=== PATIENT | male | born 1970 | race Caucasian/White ===

== ENCOUNTER 2017-06-23 17:37 | Emergency (ER) | payer BC, OTHER ==
[~2017-06-23] VITALS: Ht 182.9 cm; Wt 89.9 kg
[~2017-06-23 17:37] MED LIST: MOME50SP5; UNKNOWN INHALER INH
[2017-06-23 17:40] VITALS: TEMP 36.9; Ht 182.9 cm; Wt 89.9 kg
[2017-06-23] MEDS ORDERED: PROPARACAINE HCL 0.5% OP SOLN 15 ML BTL ONE (17:51)
--- NOTE | 2017-06-23 20:51 | EMERGENCY ROOM VISIT NOTE ---
History First contact with patient: 17:46 Chief Complaint: EYE ASSESSMENT Stated Complaint: PERIPHERAL VISION IMPAIRMENT, LEFT EYE History of Present Illness The patient is a 47 year old male who presents to the Emergency Room via private vehicle with complaints of "Peripheral vision impairment, left eye". The patient states that he recently had a vitreous detachment, and retinal tear repaired via laser this past Sunday by Dr. Hyde. He states that he has been doing well up until 2 hours prior to arrival he notes that the left eye, in the left lateral field of vision is turning dark. He is concerned that he is experiencing a retinal tear. He has a history of such in his right eye. He states that there is no pain. Review of Systems A complete 10-point Review of Systems was discussed with the patient, with pertinent positives and negatives listed in the History of Present Illness. All remaining Review of Systems questions can be considered negative unless otherwise specified. Past Medical/Surgical History Medical Problems: (1) Right shoulder surgery Family History No pertinent Social History Smoking Status: Never Smoker Alcohol Use: none Drug Use: none Marital Status: single Occupation Status: employed Current/Historical Medications No Active Prescriptions or Reported Meds Physical Exam Vital Signs Date Time Temp Pulse Resp B/P (MAP) Pulse Ox O2 Delivery O2 Flow Rate FiO2 06/23/17 21:03 62 20 117/72 95 06/23/17 17:40 36.9 78 17 112/77 98 Room Air Right Eye Acuity: 20/25 Left Eye Acuity: 20/200 Physical Exam VITAL SIGNS - Vital signs and nursing notes were reviewed. Stable. GENERAL - 47-year-old male appearing his stated age. Communicates well with provider and answers questions appropriately. HEAD - Normocephalic, Atraumatic. No Zamora's Sign or Raccoon's Eyes. EYES - PERRL with EOMI bilaterally. Sclera normal without noticeable foreign body or excoriations. No conjunctival injection noted in the L eye. L eye without subconjunctival hemorrhage. Fundoscopic exam demonstrates no AV-nicking , cotton wool spots, or flame hemorrhages. An Automated Tonometer was utilized to obtain bilateral orbital pressures. The pressures in the LEFT eye were found to be 16, 17 with an average of 16.5. The pressures in the RIGHT eye were found to be 22, 22 with an average of 22. Patient tolerated the procedure well and no complications were met. Medical Decision & Procedures Medical Decision Patient was seen and evaluated as above. He presents to us today with a visual disturbance in the left lateral field of vision. He has no neurovascular or neurologic deficits appreciated upon examination. I do not suspect CVA. Given his past medical history of eye ailments, I suspect this is likely a retinal detachment. I discussed this with the attending physician. I did call the on- call combined rail operator, Dr. Sanford. I discussed the case. Because the recent surgery and established care was already with Dr. Hyde, it was recommended that I attempt to contact him however Dr. Sanford did inform me that if we are unable to get through to him we certainly may call him back. Fortunately, after calling the [employer] answering service, we were able to get through to Dr. Hyde. I spoke with Dr. Hyde at 7:20 PM. He informed me that he could see the patient potentially tomorrow at the [facility] at 8 AM. He did inform me though however he is not in town at this time, and could not see him until then. We also discussed difficulties in getting him to the operating room if this needed surgery given the scheduling with the local operating room. It was decided that the patient would likely be better served transferred to [facility] to a retinal specialist for further evaluation and management. I discussed this with the patient, and then I placed a call to [facility], and after they called back spoke with Dr. Juares, Public Works Manager at 8:04 PM. We discussed that unfortunately, given the recent severe inclement weather that it would not be safe, after weighing benefits versus risk to transfer the patient at this immediate time, rather wait until the morning hours (0700) would be safer. We discussed how the patient could go at 7 AM to the emergency department down there via private vehicle being nothing by mouth after midnight, for evaluation by the combined rail operator in the emergency department, and if need be could go to surgery. During this time an ultrasound was also performed at bedside of the patient's eye and reveals a small wisp what we suspect to be a small retinal detachment. This was also discussed with the [place] specialist. She also recommended bed rest and we felt that further change in his retinal tear in the few short hours was less likely. I discussed this with the patient. He was concerned over being able to get down to [facility] in regard to transportation. I informed him that if need be we could keep him here in the emergency department and then send him via ambulance when weather was better. He asked that I give him some time to take some phone calls. I then went to talk with the patient and he notes that he would prefer to be evaluated tomorrow at 8 AM per the offer that was given by Dr. Hyde and then if Dr. Hyde felt that he needed to have emergent surgery he could then go to [facility] either via private vehicle by having someone drive him or by returning here, checking into the emergency department to be transferred to [facility] via our ambulance. I did inform the patient after discussing in depth with Dr. Hyde, that certainly vision can be affected and he could have permanent vision loss, and the sooner he sees the specialist in [place] the better therefore I did encourage him to be transferred to [facility]. He preferred to wait , and be evaluated by Dr. Hyde in the morning. I will honor this request. The patient prefers to be discharged at this time, to follow-up with Dr. Hyde. I then called Dr. Hyde back at 8:40 PM to confirm this. Again it was made clear to the patient that the more time goes by, there could be permanent vision loss. The patient will be discharged per request and is to follow up tomorrow morning with Dr. Hyde at the [place] office at 0800. I also called [facility] back and discussed this with the transfer team to alert them that the patient will be first seen by the combined rail operator who performed his recent procedure, and then if need be will be, sent down for evaluation to [facility]. The patient was educated upon management , educated upon worrisome symptoms which to return, had questions answered prior to discharge, and was discharged home in good condition. The case was discussed with the attending physician. In the evaluation and treatment of this patient, the following differential diagnoses were considered: Corneal Abrasion, Conjunctivitis, Eye Contusion, Globe Injury, Orbital Floor Injury (Blowout Fracture), Corneal Ulcer, Keratitis , Herpes Zoster Opthalmic, Blepharitis, Orbital Cellulitis, Iritis, Scleritis/ Episcleritis, Uveitis, Temporal Arteritis, Subconjunctival Hemorrhage. As an additional note, I did speak with the charge nurse regarding transportation for the patient if he decides that he does not have private vehicle/someone to drive him tomorrow am once he is discharged tonight. If the patient decides that he will go down to [facility], and does not have someone to drive him, he was informed that he may come back here to the emergency Department for potential transfer down [facility]'s emergency Department where he can be evaluated by the ophthalmology team. Impression Primary Impression: Retinal detachment Departure Information Dispostion Home / Self-Care Condition GOOD Prescriptions No Active Prescriptions or Reported Meds Referrals Junior Martinez DO (PCP) Aniceto Hyde D.O. Patient Instructions My [facility] Additional Instructions You were seen in the emergency Department for a suspected retinal tear of your left eye. As we discussed, Dr. Hyde is able to see you in his office at 8 AM. Please go to the [facility]'s office at that time, to the 2nd level entrance as the door should be opened by 8 AM, and then go to the eye care Center waiting room. He will meet you there around 8 AM. If you have difficulty please call [phone]. This is the answering service. Please tell them that you're trying to meet with Dr. Hyde. You are to eat nothing after midnight. You may still have to go to [facility] emergency department tomorrow morning to meet with the ophthalmologic specialist for potential surgery. If you are unable to have someone drive you down you may return here to check into the emergency Department for potential transfer. If you have difficulties please call here at [phone]. Please do not do any strenuous activities and rest. Please return with any new/concerning symptoms. Thank you for your time.
[2017-06-23 21:03] VITALS: BP 117/72; PULSE 62; O2SAT 95
== END 2017-06-23 21:04 | disposition home or self-care (01) ==
LOC: C.EDB 17:40 → C.EDD 21:04
DX: H33.22 Serous retinal detachment, left eye (principal); H43.812 Vitreous degeneration, left eye

== ENCOUNTER → 2017-06-25 | Day surgery (SDC) | payer OTHER ==
[~2017-06-25] VITALS: Ht 182.9 cm; Wt 90.5 kg
[~2017-06-25] MED LIST changes: +500ML BSSPLUS 0.5ML EPI1:1000 IRRIG ONE; +ACETAMINOPHEN 325 MG TAB PO PRN; +ATROPINE SULFATE 0.1 MG/ML 5ML SYR IV PRN; +ATROPINE SULFATE 1% OP OINT PER APPLICATION CHARGE ONE; +BSS FLUSH ONE; +BUPIVACAINE HCL 0.75% 10 ML AMP/VIAL ONE; +CEFAZOLIN SOD 1 GM VIAL ONE; +DEXAMETHASONE SOD INJ 4 MG/ML VIAL ONE; +EpINEphrine INJ 1MG/ML AMP 1 MG/ML AMP ONE; +FENTANYL CITRATE INJ 50 MCG/1 ML 2 ML VIAL IV PRN; +FENTANYL CITRATE INJ 50 MCG/1 ML 2 ML VIAL ONE; +HYALURONIDASE HUMAN 150 UNIT/ML INJ ONE; +INDOCYANINE GREEN 25 MG/10 ML ONE; +LACTATED RINGER'S 1000ML 500 ML IV SCH; +LIDOCAINE HCL 2% 2 ML VIAL (20MG/ML) ONE; +MIDAZOLAM HCL 1 MG/ML 2ML VIAL ONE; -MOME50SP5; +NEOMYCIN/POLYMYX/DEXAMETH OP OINT PER APP CHARGE ONE; +OCUCOAT 1 ML SOLN IO ONE; +ONDANSETRON INJ 2 MG/ML 2 ML VIAL IV PRN; +PHENYLEPHRINE HCL 10% OP SOLN PER DROP CHARGE ONE; +POVIDONE-IODINE OP SOLN (SURGERY CNTR CHARGING ONLY) ONE; +PROPARACAINE 0.5% OP SOLN PER DROP CHARGE OPL SCH; +PROPOFOL IV EMULSION 10 MG/ML 20 ML VIAL IV ONE; +TIMOLOL MALEATE 0.5% OP SOLN PER DROP CHARGE ONE; -UNKNOWN INHALER INH
[2017-06-25 10:16] VITALS: Ht 182.9 cm; Wt 90.5 kg
[2017-06-25] MEDS: PHENYLEPHRINE HCL 2.5% OP SOLN PER DROP CHARGE OPL SCH ×2 (10:23→10:28)
[2017-06-25] MEDS: TROPICAMIDE 1% OP SOLN PER DROP CHARGE OPL SCH ×2 (10:24→10:29)
--- NOTE | 2017-06-25 10:38 | History & Physical Bridge - SC ---
H&P Re-Evaluation Bridge Note: pt has a retinal detachment left eye and is having vitrectomy left eye. I have examined the patient, reviewed the History & Physical and in the interval since the performance of the History & Physical I have noted the following changes of clinical significance: No changes noted
--- NOTE | 2017-06-25 11:46 | [facility] Post Operative Brief Note ---
Immediate Operative Summary Operative Date Jun 25, 2017. Pre-Operative Diagnosis Left Eye Retinal Detachment Post-Operative Diagnosis same Procedure(s) Performed Left Eye 23 Gauge Vitrectomy, Endolaser, Insertion of SF6 gas Surgeon Dr. Kyung Hyde Finish Production Manager Surgeon(s) 0 Estimated Blood Loss 0 Findings Consistent with Post-Op Diagnosis Specimens none Anesthesia Type MAC
--- NOTE | 2017-06-25 11:48 | Discharge Instructions-SurgCtr ---
Discharge Instructions Date of Service Jun 25, 2017. Visit Reason for Visit: Left Eye Retinal Detachment Discharge Discharge Diagnosis / Problem: same Discharge Goals Goal(s): Improve function Activity Recommendations Activity Limitations: per Instructions/Follow-up section Anesthesia . Post Anesthesia Instructions: If you have had General Anesthesia or IV Sedation: * Do not drive today. * Resume driving when surgeon permits. * Do not make important decisions or sign legal documents today. * Call surgeon for: 1. Temperature elevations greater than 101 degrees F. 2. Uncontrollable pain. 3. Excessive bleeding. 4. Persistent nausea and vomiting. 5. Medication intolerance (nausea, vomiting or rash). * For nausea and vomiting use only clear liquids such as: tea, soda, bouillon until nausea subsides, then gradually increase diet as tolerated. * If you have any concerns or questions, call your surgeon's office. If physician is unavailable and it is an emergency, call 911 or go to the nearest emergency room. . Instructions / Follow-Up Instructions / Follow-Up * May take Tylenol if needed for discomfort. * Do NOT lay flat on back and position head as follows: Face down as much as possible during daytime. Sleep on left side or face down. * Do NOT remove green bracelet until instructed to do so by your surgeon and follow these precautions: * No air travel * No travel above 2500 feet * No nitrous oxide (N2O). * Do NOT remove eye shield. * NO straining, heavy lifting (>15 pounds) or bending below waist. * Avoid getting water or soap directly into operative eye. * Do NOT rub eye. If you experience increasing eye pain not relieved by medication, please contact us immediately at [phone]. If you are unable to reach someone at the above number, call [phone] and ask to speak with the EYE DOCTOR WORKERS COMPENSATION COORDINATOR. Inform them that you are a Dr. Hyde patient who had recent surgery. Diet Recommendations Home Diet: resume previous diet Procedures Procedures Performed: Left Eye 23 Gauge Vitrectomy, Endolaser, Insertion of SF6 gas Pending Studies Studies pending at discharge: no Medical Emergencies . Who to Call and When: Medical Emergencies: If at any time you feel your situation is an emergency, please call 911 immediately. . Non-Emergent Contact Non-Emergency issues call your: Marketing Researcher . . "Provider Documentation" section prepared by Aniceto Hyde. .
--- NOTE | 2017-06-25 11:53 | [facility] Operative Report ---
Operative Report Date of Service Jun 25, 2017. 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 ICD 10: H33.022 POSTOPERATIVE DIAGNOSIS: same. PROCEDURE: 1. Pars plana vitrectomy, 23 gauge. 2. Fluid-air exchange. 3. Endolaser. 4 Air-gas exchange with SF6 20%. All to the left eye. CPT CODE: 93941 SURGEON: Aniceto Hyde D.O. COMPLICATIONS: None. ESTIMATED BLOOD LOSS: None. SPECIMENS: None. ANESTHESIA: Retrobulbar block and MAC. INDICATIONS FOR PROCEDURE: Surgery is indicated to decrease risk of vision loss and potentially improve vision. CONSENT: The risks, benefits and alternatives were discussed with the patient including but not limited to decreased visual acuity, failure to achieve desired results, loss of the eye, infection, pain, glaucoma, lens changes, retinal tears, retinal detachment, the need for more procedures, drooping of the eyelid, blindness, and double vision. The patient is aware of risks and consents to the surgery. Consent is signed and on the chart. OPERATION AND FINDINGS: The patient was brought to the operating room where the patient was identified by name, date, and medical record number. The surgical site was confirmed with the informed written consent. The patient was sedated by the anesthesiology team after which a 50:50 mixture of 2% lidocaine and 0.75% bupivacaine with hyaluronidase was administered in a standard retrobulbar fashion. A total of 4 ml was administered without difficulty. The patient was then prepped and draped in the usual sterile manner for retinal surgery. A wire lid speculum was placed and an Jerald 23-gauge trocar cannula system was employed. The inferior temporal trocar cannula was first placed in an angled fashion 3.75mm posterior to the surgical limbus and the infusion cannula was inserted into this cannula after which the intravitreal position was verified prior to turning the infusion on. Two more trocar cannulas were then inserted in an angled fashion, one in the superior temporal, and one in the superior nasal quadrant both 3.75mm posterior to the surgical limbus. A light pipe and vitrector were then introduced into the eye and the BIOM wide angle viewing system was brought into place. Posterior inspection revealed prior laser superiorly, temporally and inferiorly. There was an old tear with traction inferior temporally that had old laser and fresh laser surrounding it. There was noted a retinal detachment from 8 to 12 o'clock that extended to the optic nerve with several retinal breaks along the vitreous base from 8 to 9 o'clock. Standard core vitrectomy was performed and the vitreous was insured to be totally detached from the posterior pole with the aid of the vitrector. The vitreous base was shaved for 360 degrees. At this point scleral depression was performed for 360 degrees and no other retinal tears were noted. Fluid air exchange was performed and the subretinal fluid was drained through a small retinotomy site that was fashioned superior nasal to the optic nerve. Endolaser was then used to place laser around the inciting retinal break and the drainage retinotomy as well as along the vitreous base in areas untreated previously. Next, an air gas exchange was performed with SF620% for a complete fill of the eye. The trocar cannulas were then removed and found to be air tight. The intraocular pressure was found to be within normal limits by palpation and subconjunctival injections of Kefzol and dexamethasone were administered inferiorly and superiorly. The wire lid speculum was removed. Maxitrol and timolol were applied to the surface of the eye. A light patch and shield were taped over the surface of the eye and the patient left the Operating Room in stable condition having tolerated the procedure well. DISPOSITION: A gas bracelet was placed on the patient's wrist and gas precautions reviewed as well as the positioning instructions. The patient has an appointment the following morning in the Ophthalmology Clinic. The patient is to call immediately if there are any problems overnight. I attest to the content of the Intraoperative Record and any orders documented therein. Any exceptions are noted below.
[2017-06-25 11:54] VITALS: TEMP 36.4
--- NOTE | 2017-06-25 12:15 | Anesthesia Progress Nt - [facility] ---
Anesthesia Post Op Note Date & Time Jun 25, 2017 at 12:15 Vital Signs Pain Intensity: 2 Vital Signs Past 12 Hours Date Time Temp Pulse Resp B/P (MAP) Pulse Ox O2 Delivery O2 Flow Rate FiO2 06/25/17 11:54 36.4 58 16 116/77 (90) 98 Room Air 06/25/17 10:15 36.4 68 16 123/80 (94) 97 Room Air Notes Mental Status: alert / awake / arousable, participated in evaluation Pt Amnestic to Procedure: Yes Nausea / Vomiting: adequately controlled Pain: adequately controlled Airway Patency, RR, SpO2: stable & adequate BP & HR: stable & adequate Hydration State: stable & adequate Anesthetic Complications: no major complications apparent
[2017-06-25 12:27] VITALS: BP 107/72; PULSE 59; O2SAT 97
== END | disposition home or self-care (01) ==
LOC: X.SURG 08:18
PROVIDERS: ATTEND Ophthalmology
DX: H33.022 Retinal detachment with multiple breaks, left eye (principal)